=== PATIENT | male | born 1950 | race Caucasian/White ===

== ENCOUNTER 2018-01-24 10:35 | Outpatient (CLI) | payer MEDICARE ==
--- NOTE | 2018-01-24 12:29 | RAD ---
THREE VIEWS LEFT SHOULDER: History: Left shoulder pain. FINDINGS: Three views of the left shoulder shows a remote healed fracture midportion left clavicle. There are m oderate to severe degenerative changes of the glenohumeral joint. There is no evidence of acute fract ure or dislocation. IMPRESSION: Severe left shoulder osteoarthritis without acute osseous abnormality. POS: OLEG
== END 2018-01-24 10:36 | disposition home or self-care (01) ==
LOC: MADRAD 10:35
PROVIDERS: ATTEND Family Medicine
DX: M25.512 Pain in left shoulder (principal); M19.012 Primary osteoarthritis, left shoulder